=== PATIENT | female | born 1950 | race Caucasian/White ===

== ENCOUNTER 2019-07-29 07:35 | Emergency (ER) | payer MEDICARE, BC ==
[2019-07-29 08:03] VITALS: BP 138/59
--- NOTE | 2019-07-29 08:19 | UC ---
Eye Complaint HPI - HPI Summary HPI Summary: PER business analyst intern: "Eye drainage and itching for about 2 days. Eyes are getting crusty and uncomfortable." -no URI sx, no fevers. -has asthma but no overt sx. she knows her albuterol is about to and asks for a RF. ? minimal asthma sx but no SOB. overt wheezing or coughing -denies eye pain. only has vision issues b/c dx/ -eyes crusting shut in AM -wears contacts abut none since sx started -no FB, no trauma - History of Current Complaint Chief Complaint: UCEye Stated Complaint: BILATERAL EYE IRRITATION, ASTHMA Time Seen by Provider: 07/29/19 08:10 Pain Intensity: 0 - Allergies/Home Medications Allergies/Adverse Reactions: Allergies Allergy/AdvReac Type Severity Reaction Status Date / Time Woelllx-Gtv-Oon Reductase Allergy Muscle Ache Verified 07/29/19 08:03 Inhibitor Home Medications: Home Medications Aspirin 81 mg CHEW TAB* 81 mg PO DAILY 07/29/19 [History Confirmed 07/29/19] Ezetimibe TAB* [Zetia TAB*] 10 mg PO DAILY 07/29/19 [History Confirmed 07/29/19] High Blood Pressure Med 07/29/19 [History] PMH/Surg Hx/FS Hx/Imm Hx Previously Healthy: Yes - Surgical History Surgical History: None - Family History Known Family History: Positive: Hypertension, Diabetes - Social History Alcohol Use: None Substance Use Type: None Smoking Status (MU): Never Smoked Tobacco Review of Systems All Other Systems Reviewed And Are Negative: Yes Constitutional: Positive: Negative Skin: Positive: Negative. Negative: Rash Eyes: Positive: Drainage, Eye Redness ENT: Positive: Negative Respiratory: Positive: Negative Cardiovascular: Positive: Negative Gastrointestinal: Positive: Negative Genitourinary: Positive: Negative Motor: Positive: Negative Neurovascular: Positive: Negative Musculoskeletal: Positive: Negative Neurological: Positive: Negative Psychological: Positive: Negative Is Patient Immunocompromised?: No Physical Exam Triage Information Reviewed: Yes Appearance: Well-Appearing, No Pain Distress, Well-Nourished - very pleasant Vital Signs: Initial Vital Signs Temp 98.4 F 07/29/19 07:58 Pulse 79 07/29/19 07:58 Resp 18 07/29/19 07:58 BP 138/59 07/29/19 07:58 Pulse Ox 97 07/29/19 07:58 Vital Signs Reviewed: Yes Eyes: Positive: Discharge - + conjunctival injection w/ goopy purulent dc/ EOMI. PERRL. ENT: Positive: Pharynx normal, TMs normal Neck exam: Normal Neck: Positive: Supple, Nontender, No Lymphadenopathy Respiratory Exam: Normal Respiratory: Positive: Lungs clear, Normal breath sounds, No respiratory distress, No accessory muscle use. Negative: Crackles, Rhonchi, Stridor, Wheezing Cardiovascular Exam: Normal Abdominal Exam: Normal Musculoskeletal Exam: Normal Neurological Exam: Normal Psychological Exam: Normal Skin Exam: Normal Eye Complaint Course/Dx - Course Course Of Treatment: -no contacts or eye make up for 5 days or until sx resolve - Differential Dx/Diagnosis Differential Diagnosis/HQI/PQRI: Conjunctivitis, Foreign Body Provider Diagnosis: Conjunctivitis Discharge ED - Sign-Out/Discharge Documenting (check all that apply): Patient Departure All imaging exams completed and their final reports reviewed: No Studies - Discharge Plan Condition: Stable Disposition: HOME Prescriptions: Albuterol HFA INHALER* [Ventolin HFA Inhaler*] 2 puff INH Q4H PRN 30 Days #1 mdi PRN Reason: Shortness Of Breath Gentamicin 0.1% OINTMENT* 1 applic TOPICAL TID 5 Days #1 tube Patient Education Materials: Conjunctivitis (ED) Referrals: No Primary Care Phys,NOPCP [Primary Care Provider] - Additional Instructions: Please follow up with your PCP or an urgent care center if your symptoms increase or persist. - Billing Disposition and Condition Condition: STABLE Disposition: Home
== END 2019-07-29 08:32 | disposition home or self-care (01) ==
LOC: UCCORT 07:35
DX: H10.33 Unspecified acute conjunctivitis, bilateral (principal); Z79.82 Long term (current) use of aspirin; Z88.8 Allergy status to other drugs, medicaments and biological substances
CPT/HCPCS: 99202; G0463